=== PATIENT | female | born 1940 | race Caucasian/White ===

== ENCOUNTER 2016-04-25 06:08 | Day surgery (SDC) | payer MEDICARE, BC ==
--- NOTE | ~2016-04-25 | EGD ---
EGD REPORT [facility] [address] [address] NAME: BELINDA MONTGOMERY : 36 STATUS : REG [facility]#: [id number] AGE: 75 ADM/REG DATE : 04/25/16 MR#: [id number] REPORT SERV DATE: 04/25/16 DICTATED BY: UNA CUNNINGHAM DATE: 04/25/16 REPORT STATUS : Draft [facility]ANS[facility]: [facility] DATE: 04/25/16 Endoscopy Center Patient Name: Belinda Montgomery Date of : 1940 Attending MD: UNA CUNNINGHAM, Procedure Date No Time: 04/25/2016 Procedure: Colonoscopy Indications: High risk colon cancer surveillance: Personal history of colon cancer Referring MD: WILLIAM GRACIA Medicines: Monitored Anesthesia Care Complications: No immediate complications. Estimated blood loss: None. Procedure: Pre-Anesthesia Assessment: - ASA Grade Assessment: III - A patient with severe systemic disease. After I obtained informed consent, the scope was passed under direct vision. Throughout the procedure, the patient's blood pressure, pulse, and oxygen saturations were monitored continuously. The [facility] [id number] was introduced through the anus and advanced to the ileocolonic anastomosis. The colonoscopy was performed without difficulty. The patient tolerated the procedure well. The quality of the bowel preparation was adequate. Findings: The perianal and digital rectal examinations were normal. There was evidence of a prior nimz-dh-oill ileo-colonic anastomosis in the transverse colon. This was patent. Five sessile polyps were found in the transverse colon. The polyps were 1 to 3 mm in size. These polyps were removed with a cold biopsy forceps. Resection and retrieval were complete. Verification of patient identification for the specimen was done. Estimated blood loss was minimal. Internal hemorrhoids were found during retroflexion and were Grade II (internal hemorrhoids that prolapse but reduce spontaneously). The exam was otherwise without abnormality on direct and retroflexion views. Impression: - Patent [id number] ileo-colonic anastomosis. - Five 1 to 3 mm polyps in the transverse colon. Resected and retrieved. - Internal hemorrhoids. - The examination was otherwise normal on direct and retroflexion views. EGD REPORT [address] [address] NAME: BELINDA MONTGOMERY : 36 STATUS : [place] [facility] PAT#: [id number] AGE: 75 ADM/REG DATE : 04/25/16 MR#: [id number] REPORT SERV DATE: 04/25/16 DICTATED BY: UNA CNUNINGHAM DATE: 04/25/16 REPORT STATUS : Draft TRANSCRIBED BY: [employer] [facility] DATE: 04/25/16 Recommendation: - Patient has a contact number available for emergencies. The signs and symptoms of potential delayed complications were discussed with the patient. Return to normal activities tomorrow. Written discharge instructions were provided to the patient. - Return to previous diet. - Continue present medications. - Await pathology results. - Repeat colonoscopy for surveillance based on pathology results. Procedure Code(s): --- Professional --- 86915, Colonoscopy, flexible, proximal to splenic flexure; with biopsy, single or multiple Diagnosis Code(s): --- Professional --- Z98.0, Intestinal bypass and anastomosis status D12.3, Benign neoplasm of transverse colon K64.1, Second degree hemorrhoids Z85.038, Personal history of other malignant neoplasm of large intestine CPT copyright 2013 [employer]. All rights reserved. The codes documented in this report are preliminary and upon kelp or seagrass gatherer review may be revised to meet current compliance requirements. UNA CUNNINGHAM, 04/25/2016 7:28 AM Number of Addenda: 0 Note Initiated On: 04/25/2016 6:58 AM Scope Withdrawal Time 0 hours 11 minutes 11 seconds [id number] [id number]
[~2016-04-25 06:08] MED LIST: BETIMOL0.25 % OPH; CALCIUM CITRATE PO; FLORINEF0.1 MG PO; FOLIC PO; LEVOTHYROXIN88 MCG PO; LEXAPRO10 PO; LOTEMAX OPH SUSP5 ML OPH; NEUR300 PO; NOR75 PO; PATADAY OPH; PRAVAC PO; TIMOLOL MAL0.25 % OPH
[2016-06-08] MEDS ORDERED: DSS PO (13:02)
[2016-06-08] MEDS ORDERED: MED PASS PO (13:07)
== END 2016-04-25 23:59 | disposition home or self-care (01) ==
LOC: DMU 06:08
PROVIDERS: Internal Medicine Gastroenterology
PROC: 0DBL8ZX Excision of Transverse Colon, Via Natural or Artificial Opening Endoscopic, Diagnostic (ICD-10-PCS; principal; 2016-04-25 07:30)
DX: K63.5 Polyp of colon (principal); K64.1 Second degree hemorrhoids; H40.9 Unspecified glaucoma; M06.9 Rheumatoid arthritis, unspecified; H91.90 Unspecified hearing loss, unspecified ear; E78.5 Hyperlipidemia, unspecified; K21.9 Gastro-esophageal reflux disease without esophagitis; F41.9 Anxiety disorder, unspecified; G47.00 Insomnia, unspecified; D72.829 Elevated white blood cell count, unspecified; Z90.49 Acquired absence of other specified parts of digestive tract; Z85.038 Personal history of other malignant neoplasm of large intestine; Z88.5 Allergy status to narcotic agent; Z88.0 Allergy status to penicillin; Z98.0 Intestinal bypass and anastomosis status; Z88.8 Allergy status to other drugs, medicaments and biological substances; Z79.899 Other long term (current) drug therapy; Z90.89 Acquired absence of other organs; Z98.890 Other specified postprocedural states; Z98.49 Cataract extraction status, unspecified eye; Z90.710 Acquired absence of both cervix and uterus
CPT/HCPCS: 88305

== ENCOUNTER 2016-05-01 01:58 | Inpatient (IN) | payer MEDICARE, BC ==
--- NOTE | ~2016-05-01 | CN ---
Consultation Report [facility] [address] [place]. [address] NAME: KEILY MONTGOMERY : 36 STATUS : ADM IN PAT#: [id number] AGE: 75 ADM/REG DATE : 05/01/16 MR#: [id number] REPORT SERV DATE: 05/01/16 DICTATED BY: SERGE ORTEGA DATE: 05/01/16 REPORT STATUS : Draft TRANSCRIBED BY: MODL DATE: 05/01/16 DATE OF CONSULTATION: CHIEF COMPLAINT: Back pain. HISTORY OF PRESENT ILLNESS: A 75-year-old female from [place], [place], who is now in the process of moving to [place]. The patient is typically very active, using no assistive devices except occasionally using a walker in her house at home in [place] just for balance purposes. She still works in her yard, still drives all of her own driving, does her own housekeeping, etc. She had a fall on 04/27/2016 acutely starting with low back pain immediately after the fall. The pain was in the back, radiates to the buttocks, but no radicular complaints into the lower extremities. She has had no alteration of bowel and bladder function. When seen in the ER at [facility], she was up walking, and her pain seemed to be manageable by oral medicine, and she was to follow up with my physician's investigative assistant on Sunday but could not find the office. By Sunday afternoon and Sunday, the pain became rather severe to the point she could not take the pain anymore. The pain is now 8 or 9 on a scale of 0 to 10, worse with any kind of activity, particularly movement. She said she just could not take the pain any longer, came to the ER, and was admitted last night. This morning, the pain is still a 6 out 10 even with lying flat in bed. It is 9 to 10 when she tried to get up and go to the bathroom, etc. The pain was so severe, they finally put a catheter around so she would not have to get out of bed. The past medical history, surgical history, current medications, allergies, social history, and family history are as noted in the chart on the history and physical and history of present illness. CT scan has been reviewed, the CT definitely shows a 30% compression fracture of the superior endplate of L1 with no burst component, no retropulsion. There is no major deformity. PHYSICAL EXAMINATION: NEUROLOGIC: She is alert, cooperative, and well oriented. She follows all directions. She has no deformity, has some moderate pain with percussion over the spinous process at the thoracolumbar junction. There is no significant spasm. Passive straight leg raising is negative. Her motor sensory and reflex exam in the lower extremities are symmetrical and normal. ASSESSMENT: Acute L1 compression fracture with intractable back pain. RECOMMENDATION: I have discussed two options, either being on bracing and pain medication will allow the fracture to heal over a period of 3 months versus consideration of a kyphoplasty. She was told that the risks include but are not limited to infection, there could be hematoma, neurologic deficit that even can lead to paralysis, there could be cement Consultation Report [facility] [id number] [place]. [address] NAME: KEILY MONTGOMERY : 36 STATUS : ADM IN [facility]#: [id number] AGE: 75 ADM/REG DATE : 05/01/16 MR#: [id number] REPORT SERV DATE: 05/01/16 DICTATED BY: SERGE ORTEGA DATE: 05/01/16 REPORT STATUS : Draft TRANSCRIBED BY: MODL DATE: 05/01/16 extravasation that can cause neurologic deficit as well. Nerve injury paralysis is rare but can occur. The patient knows 85% to 90% the patient should have improvement with kyphoplasty. She will decide and will let us know later today if she wants to proceed with the procedure. /MODL Serge Ortega D.O. / [id number] CC: Comfort Ritchie
--- NOTE | ~2016-05-01 | DS ---
Discharge Summary [facility] [address] [place]. [address] NAME: KEILY MONTGOMERY : 38 STATUS : DIS IN PAT#: [id number] AGE: 75 ADM/REG DATE : 05/01/16 MR#: [id number] REPORT SERV DATE: 05/05/16 DICTATED BY: PATT PRESLEY DATE: 05/04/16 REPORT STATUS : Draft TRANSCRIBED BY: MODL DATE: 05/04/16 ADMISSION DATE: 05/01/2016 DISCHARGE DATE: 05/04/2016 FINAL DIAGNOSES: 1. L1 fracture. 2. Urinary tract infection, Escherichia coli. 3. Hypokalemia. 4. Hypophosphatemia. 5. Mild elevated troponin with previous normal cardiac workup. 6. History of colon cancer. 7. Hypothyroidism. 8. Anxiety disorder. DIAGNOSTIC EXAMS: CAT scan of the brain without showing no acute intracranial hemorrhage or other acute intracranial pathology. Large 2.3 x 1 cm area of dense dystrophic calcification, left basal ganglia, mild age-appropriate diffuse cerebral involutional changes. Spinal x-ray shows acute 40% compression fracture superior L1 vertebra. No bony or soft tissue encroachment of the spinal canal or neural foramina. 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 No aneurysm. Chest x-ray showing no evidence of acute cardiopulmonary disease. HOSPITAL COURSE: Please refer to the H and P done by Dr. Castillo dated 05/01/2016. Briefly, this is a 75-year-old female, who comes in with severe back pain. The patient's chest x- ray, no evidence of acute cardiopulmonary abnormality. The patient has a history of colon cancer, status post resection and chemotherapy, and under remission right now according to her. 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 She is in the process of moving here from [place] and accidentally fell. She was unable to get up, having severe back pain. The patient was then brought to the [facility], discharged home on pain medications, and needs to follow up with Dr. Desai. However, the patient could not find Dr. Desai' office the next day and started having increasing pain. The patient then went to the emergency room here. The patient was then admitted by Dr. Castillo. We got Dr. Desai involved and he recommended brace and rehab. The patient, meanwhile, was found to have urinary tract infection, and it turned out to be E. coli. We started her on ceftriaxone and downgraded to Duricef, and she seems to be tolerating it. Meanwhile, she was also found to be hypokalemic and hypophosphatemic. We replaced this. She was found also to have a mild troponin elevation, but we did not find any EKG changes and she denies any chest pain. Further questioning revealed that she actually underwent cardiac test including an echo stress test in 01/2016, where she was told that they did not find any ischemia. We tried to get the records from [place]. After waiting for three days, we still do not have the records. I asked her repeatedly whether she really had the test and she is pretty sure about it. With her story of a recent stress test three months ago, which was normal and an echo, which she was told that it was fine, I hesitate to do another full workup here especially when the patient is not having any chest pain. The patient is now cleared by Ortho to be sent to rehab. We got Rehab Facility to take her, so she will be discharged today. She will be following up with the rehab doctor, Discharge Summary [address] [address] NAME: KEILY MONTGOMERY : 38 STATUS : DIS IN PAT#: [id number] AGE: 75 ADM/REG DATE : 05/01/16 MR#: [id number] REPORT SERV DATE: 05/05/16 DICTATED BY: PATT PRESLEY DATE: 05/04/16 REPORT STATUS : Draft TRANSCRIBED BY: CHRISTIAN DATE: 05/04/16 then follow up with Micki Brandt after rehab discharge, follow up with Ortho in four weeks, and she will need to follow up with her doctors or new doctor if she is going to permanently move here for her colon cancer, aneurysm, and elevated mild troponin. This has been explained to her at length. TIME SPENT: 45 minutes. HOME MEDICATIONS: Duricef 500 mg twice a day for three more days, vitamin D 50,000 units a week, Lexapro 10 mg a day, folic acid 1 mg a day, Neurontin 300 mg three times a day, Synthroid 150 mcg a day, Pamelor 75 mg at bedtime, Pravachol 20 mg a day, calcium 750 mg twice a day, Ativan 0.5 to 1 mg every six hours as needed, Pataday one drop daily basis p.r.n., Zofran as needed, Compazine as needed, Ambien CR 12.5 mg at bedtime as needed, and timolol. I will give her prescription for Percocet 5/325 one tab p.o. q.8 p.r.n. pain. GIGI/CHRISTIAN Patt Presley M.D. / [id number] CC: Comfort Rowell
--- NOTE | ~2016-05-01 | HP ---
History And Physical [facility] [address] [place]. [address] NAME: KEILY MONTGOMERY : 36 STATUS : ADM IN PAT#: [id number] AGE: 75 ADM/REG DATE : 05/01/16 MR#: [id number] REPORT SERV DATE: 05/01/16 DICTATED BY: AMILCAR BOWLES DATE: 05/01/16 REPORT STATUS : Draft TRANSCRIBED BY: MODL DATE: 05/01/16 DATE OF ADMISSION: 05/01/2016 CHIEF COMPLAINT: Severe back pain. HISTORY OF PRESENT ILLNESS: This is a 75-year-old female who presents to the emergency room at [facility] with the above-mentioned complaint. History is obtained from the patient and reviewing data available on the [employer] system. According to Mrs. Montgomery, who is originally from [place], [place], who is in the process of moving over to [place] because her family is here, had a fall on 04/27/2016. She was getting out of bed and somehow fell on to the bedroom floor. She was unable to get up because of severe back pain. Fortunately, her family was around, and they took her to [facility]. She was evaluated there, discharged home on pain medication and an appointment was made for her to see Dr. Serge Desai on 04/28/2016, the next day. Unfortunately, they were unable to keep that appointment because they were trying to find the office. They had to wait to call Dr. Desai' office to make another appointment, but meanwhile, her pain was excruciating, she was unable to perform activities of daily living, and she decided to come to the emergency room for help. In the emergency room, initial workup revealed intractable back pain and acute L1 compression fracture, and she also had urinary tract infection. She also was hypokalemic, Hospitalist Service is asked to admit her for further evaluation and treatment. At the time of my evaluation, she denied any chest pain, palpitations, or orthopnea. She had no cough, hemoptysis, night sweats, or weight loss. She did have a fall as mentioned above but without any loss of consciousness. No history of fevers, chills, nausea, vomiting, or diarrhea. No history of hematemesis, hematochezia, or hematuria. No other history of recent travel or exposures other than those mentioned above. Of note, Mrs. Montgomery has been having recurrent falls recently. She had also seen Dr. Cote, her wrist surgeon for falling down, breaking her wrist. I do not think she has established her primary care with anybody here since her move. PAST MEDICAL HISTORY: Significant for history of hypothyroidism, GI polyps, and anxiety disorder. SOCIAL HISTORY: She has about 15-pack year history of smoking, but that was a long time ago. She denies alcohol use or recreational drug use. She retired from working as an [employer] employee making [employer]. FAMILY HISTORY: Noncontributory. MEDICATIONS: At home were reviewed by me in the chart today and reordered by me. REVIEW OF SYSTEMS: Is as in history of present illness. All other systems were reviewed in detail and are History And Physical [address] [place]. [address] NAME: KEILY MONTGOMERY : 36 STATUS : ADM IN [facility]#: [id number] AGE: 75 ADM/REG DATE : 05/01/16 MR#: [id number] REPORT SERV DATE: 05/01/16 DICTATED BY: AMILCAR BOWLES DATE: 05/01/16 REPORT STATUS : Draft TRANSCRIBED BY: CHRISTIAN DATE: 05/01/16 quite unremarkable. PHYSICAL EXAMINATION: GENERAL: This is a pleasant 75-year-old, not in any acute distress. HEENT: Her head is atraumatic, normocephalic. She is alert, awake, oriented to time, place, and person. Her pupils are equal, reacting to light and accommodating. External ocular muscles are intact. Membranes are moist and pink. Sclerae are nonicteric. NECK: Supple with no jugular venous distention, lymphadenopathy, or thyromegaly. LUNGS: Clear to auscultation with no wheezes, rubs, or crackles. HEART: Heart sounds were irregularly irregular. ABDOMEN: Soft, nontender. Bowel sounds are present. EXTREMITIES: Showed no cyanosis, clubbing, or edema. NEUROLOGIC: Grossly intact. No focal sensory or motor deficits. Higher functions appeared intact. She was able to move all four extremities. VITAL SIGNS: Her vital signs today showed a temperature of 97.6 degrees Fahrenheit, pulse 88, respirations 22, blood pressure was 133/60, oxygen saturations were 97% breathing 2 L of oxygen via nasal cannula. LABORATORY DATA: Reviewed on the [employer] system showed a sodium of 141, potassium 3.1, chloride 102, and CO2 of 29, BUN was 22 with a creatinine of 0.93, blood glucose was 98. CBC showed a normal white blood cell count, hemoglobin, hematocrit, and platelet count. Urinalysis showed moderate leukocyte esterase, nitrite was positive. There were greater than 182 wbcs. There was moderate blood with 101 rbc seen as well. Films of the CT scan of the brain, CT scan of the spine were all reviewed by me on the PACS today. CT of the brain did not reveal any acute intracranial pathology. However, the CT of the spine showed acute 40% compression fracture of the L1 vertebra. See report for details. IMPRESSION: 1. Recurrent falls. 2. Intractable back pain. 3. Acute L1 compression fracture. 4. Urinary tract infection. 5. Hypokalemia. 6. Hypothyroidism. PLAN: We will admit Mrs. Montgomery to the Hospitalist Service with telemetry. We will keep her n.p.o. for now, establish pain control with intravenous Dilaudid as needed and go ahead and consult Dr. Serge Desai to evaluate her and offer recommendations and treatment. Meanwhile after cultures are drawn, start her on empiric IV antibiotics for her UTI. We will also check her TSH and continue replacement therapy. We will also get a stat EKG to evaluate for cardiac arrhythmia. We will continue her home medications. Pharmacy has to call her family in the morning or her pharmacy to get list. The patient is unable to recall. Meanwhile, place her on SCDs for DVT prophylaxis and continue all other supportive care. I have discussed the above plans with the patient. Her questions were answered and she is agreeable to the above recommendations. History And Physical [address] [place]. [address] NAME: KEILY MONTGOMERY : 36 STATUS : ADM IN [facility]#: [id number] AGE: 75 ADM/REG DATE : 05/01/16 MR#: [id number] REPORT SERV DATE: 05/01/16 DICTATED BY: AMILCAR BOWLES DATE: 05/01/16 REPORT STATUS : Draft TRANSCRIBED BY: MODJoselin DATE: 05/01/16 Hospitalist Service will be following her during her stay here. /CHRISTIAN ilcar Bowles M.D. / [id number] CC: Comfort Ritchie SHERRY R.
[2016-05-01 02:39] LABS: BASOPHILS 0.4 %; BASOPHILS ABSOLUTE 0.03 10/3/uL (0.0-0.16); EOSINOPHILS 2.1 %; EOSINOPHILS ABSOLUTE 0.16 10/3/uL (0.0-0.53); ER CBC TAT 0 Hrs 03 Mins; HEMATOCRIT 36.8 % (36.0-48.0); HEMOGLOBIN 12.2 g/dL (12.0-16.0); IMMATURE GRANULOCYTES 0.3 %; IMMATURE GRANULOCYTES ABSOLUTE 0.02 10/3/uL (0.0-0.11); LYMPHOCYTES 18.1 %; LYMPHOCYTES ABSOLUTE 1.38 10/3/uL (0.67-4.30); MANUAL DIFF NO %; MEAN CORPUS HGB CONC 33.2 g/dL (32.0-36.0); MEAN CORPUSCULAR HEMOGLOB 27.7 pg (26.0-34.0); MEAN CORPUSCULAR VOLUME 83.6 fL (80-100); MEAN PLATELET VOLUME 8.8 fL (9.2-13.0); MONOCYTES 10.7 %; MONOCYTES ABSOLUTE 0.82 10/3/uL (0.21-1.20); NEUTROPHILS 68.4 %; NEUTROPHILS ABSOLUTE 5.23 10/3/uL (2.02-8.40); PLATELET COUNT 212 10/3/uL (150-400); RBC DISTRIBUTION WIDTH 15.2 % (12.0-16.0); WHITE BLOOD CELLS 7.6 10/3/uL (4.5-10.5)
[2016-05-01 02:54] LABS: CALCIUM, SERUM 8.8 MG/DL (8.5-10.4); CHLORIDE, SERUM 102 MMOL/L (96-112); CO2 (CARBON DIOXIDE) 29 MMOL/L (24-34); CPK 86 U/L (0-200); CREATININE 0.93 MG/DL (0.55-1.02); GFR AFRICAN AMERICAN 69 ML/MIN (>=60); GFR NON AFRICAN AMERICAN 59 ML/MIN (>=60); GLUCOSE, SERUM 98 MG/DL (60-99); SODIUM, SERUM 141 MMOL/L (135-148)
[2016-05-01 02:55] LABS: BUN (BLOOD UREA NITROGEN) 22 MG/DL (6-23); POTASSIUM, SERUM 3.1 MMOL/L (3.5-5.3)
[2016-05-01 02:56] LABS: ASCORBIC ACID (UR NOT ORDER) NEG (NEG); BILIRUBIN, URINE NEGATIVE (NEG); ER URINALYSIS TAT 0 Hrs 00 Mins; KETONE, URINE 20 MG/DL (NEG); LEUKOCYTE ESTERASE(NOT OR MOD (NEG); NITRITE (URINE) POS (NEG)
[2016-05-01 02:57] LABS: WBC (NOT ORDERED) (RFLEX) > 182 (0-5)
[2016-05-01] MEDS ORDERED: UNABLE TO RECALL (03:24)
[2016-05-01] MEDS ORDERED: CALCIUM CITRATE PO (11:51)
[2016-05-01] MEDS ORDERED: LEXAPRO10 PO (11:52)
[2016-05-01] MEDS ORDERED: VITD PO (11:52)
[2016-05-01] MEDS ORDERED: LEVOTHYROXIN150 MCG PO (11:53)
[2016-05-01] MEDS ORDERED: FOLIC PO (11:53)
[2016-05-01] MEDS ORDERED: NEUR300 PO (11:53)
[2016-05-01] MEDS ORDERED: ATV.5 PO (11:55)
[2016-05-01] MEDS ORDERED: NOR75 PO (11:55)
[2016-05-01] MEDS ORDERED: PRAVAC PO (11:56)
[2016-05-01] MEDS ORDERED: PATADAY OPH (11:56)
[2016-05-01] MEDS ORDERED: ZOFRANODT8 PO (11:56)
[2016-05-01] MEDS ORDERED: COMP5B PO (11:57)
[2016-05-01] MEDS ORDERED: AMBIEN CR12.5 MG PO (11:57)
[2016-05-01] MEDS ORDERED: TIMOLOL MAL0.5 % OPH (11:58)
[2016-05-01 22:45] LABS: POTASSIUM, SERUM 3.5 MMOL/L (3.5-5.3)
[2016-05-01 22:50] LABS: TROPONIN I 0.13 NG/ML (<0.05)
[2016-05-02 05:38] LABS: BASOPHILS 0.3 %; BASOPHILS ABSOLUTE 0.02 10/3/uL (0.0-0.16); EOSINOPHILS 3.6 %; EOSINOPHILS ABSOLUTE 0.27 10/3/uL (0.0-0.53); HEMATOCRIT 35.5 % (36.0-48.0); HEMOGLOBIN 11.5 g/dL (12.0-16.0); IMMATURE GRANULOCYTES 0.1 %; IMMATURE GRANULOCYTES ABSOLUTE 0.01 10/3/uL (0.0-0.11); LYMPHOCYTES ABSOLUTE 1.59 10/3/uL (0.67-4.30); MANUAL DIFF NO %; MEAN CORPUS HGB CONC 32.4 g/dL (32.0-36.0); MEAN CORPUSCULAR HEMOGLOB 27.8 pg (26.0-34.0); MEAN PLATELET VOLUME 9.3 fL (9.2-13.0); MONOCYTES 14.8 %; MONOCYTES ABSOLUTE 1.12 10/3/uL (0.21-1.20); NEUTROPHILS 60.2 %; NEUTROPHILS ABSOLUTE 4.55 10/3/uL (2.02-8.40); PLATELET COUNT 205 10/3/uL (150-400); RBC DISTRIBUTION WIDTH 15.7 % (12.0-16.0); RED CELL COUNT 4.13 10/6/uL (4.0-5.6); WHITE BLOOD CELLS 7.6 10/3/uL (4.5-10.5)
[2016-05-02 06:11] LABS: CALCIUM, SERUM 8.6 MG/DL (8.5-10.4); CHLORIDE, SERUM 103 MMOL/L (96-112); CO2 (CARBON DIOXIDE) 29 MMOL/L (24-34); CPK (IF ELEVATED MB BANDS) 64 U/L (0-200); GFR AFRICAN AMERICAN 82 ML/MIN (>=60); GFR NON AFRICAN AMERICAN 71 ML/MIN (>=60); GLUCOSE, SERUM 110 MG/DL (60-99); PHOSPHORUS, SERUM 2.1 MG/DL (2.5-4.5); POTASSIUM, SERUM 3.9 MMOL/L (3.5-5.3); SODIUM, SERUM 139 MMOL/L (135-148)
[2016-05-02 06:14] LABS: BUN (BLOOD UREA NITROGEN) 13 MG/DL (6-23); TROPONIN I 0.13 NG/ML (<0.05)
[2016-05-04 05:16] LABS: BUN (BLOOD UREA NITROGEN) 15 MG/DL (6-23); CHLORIDE, SERUM 103 MMOL/L (96-112); CO2 (CARBON DIOXIDE) 31 MMOL/L (24-34); GFR AFRICAN AMERICAN 71 ML/MIN (>=60); GFR NON AFRICAN AMERICAN 62 ML/MIN (>=60); GLUCOSE, SERUM 87 MG/DL (60-99); POTASSIUM, SERUM 4.5 MMOL/L (3.5-5.3); SODIUM, SERUM 141 MMOL/L (135-148)
[2016-06-08] MEDS ORDERED: DSS PO (13:02)
[2016-06-08] MEDS ORDERED: MED PASS PO (13:07)
== END 2016-05-04 12:38 | DRG 552 ==
LOC: ER 01:58 → 5SO 04:42
PROVIDERS: Internal Medicine; Internal Medicine Pulmonary Disease; Nurse Practitioner; Nurse Practitioner Acute Care
DX: S32.018A Other fracture of first lumbar vertebra, initial encounter for closed fracture (principal); N39.0 Urinary tract infection, site not specified; E87.6 Hypokalemia; E03.9 Hypothyroidism, unspecified; Z91.81 History of falling; F41.9 Anxiety disorder, unspecified; Z87.891 Personal history of nicotine dependence; Z88.5 Allergy status to narcotic agent; Z88.1 Allergy status to other antibiotic agents; Z88.0 Allergy status to penicillin; Z79.899 Other long term (current) drug therapy; Z85.038 Personal history of other malignant neoplasm of large intestine; Z98.890 Other specified postprocedural states; Z90.49 Acquired absence of other specified parts of digestive tract; F32.9 Major depressive disorder, single episode, unspecified; W06.XXXA Fall from bed, initial encounter; Y92.013 Bedroom of single-family (private) house as the place of occurrence of the external cause; N88.0 Leukoplakia of cervix uteri; N88.1 Old laceration of cervix uteri; N88.8 Other specified noninflammatory disorders of cervix uteri; W01.10XA Fall on same level from slipping, tripping and stumbling with subsequent striking against unspecified object, initial encounter
CPT/HCPCS: 70450; 71010; 72131; 80048; 81001; 82550; 83605; 83735; 84100; 84132; 84443; 84484; 85025; 87040; 87077; 87086; 87186; 93005; 96372; 96374; 96375; 97116-GP; 97162-GP; 97530-GP; 99284; 99285; A9270-GY; G8978-CN-GP; G8979-CJ-GP; J1170; J2405